=== PATIENT | female | born 2000 | race African-American/Black ===

== ENCOUNTER 2019-02-02 17:06 | Emergency (ER) | payer MEDICAID ==
[~2019-02-02] VITALS: Ht 157.5 cm; Wt 75.0 kg
[2019-02-02 17:21] VITALS: BP 115/64
== END 2019-02-02 19:30 | disposition left against medical advice (07) ==
LOC: ER 17:06
DX: Z53.21 Procedure and treatment not carried out due to patient leaving prior to being seen by health care provider (principal)